=== PATIENT | female | born 1965 | race African-American/Black ===

== ENCOUNTER 2018-09-24 00:23 | Observation (INO) | payer BC ==
[2018-09-24] MEDS ORDERED: Lorazepam 1 MG TAB PO PRN (01:44)
[2018-09-24] MEDS ORDERED: Ondansetron ODT 4 MG TAB PO PRN (01:45)
[2018-09-24] MEDS ORDERED: Senokot S 8.6-50 MG TAB PO PRN (01:45)
[2018-09-24] MEDS ORDERED: Calcium Carbonate 500 MG ChewTAB PO PRN (01:45)
[2018-09-24] MEDS ORDERED: Ondansetron PF 4 MG/2 ML Vial IVP PRN (01:45)
[2018-09-24] MEDS ORDERED: Acetaminophen 325 MG TAB PO PRN (01:45)
[2018-09-24] MEDS ORDERED: hydrALAZINE 20 MG/ML VIAL SLOW IVP PRN (01:47)
[2018-09-24] MEDS ORDERED: Meclizine HCl 25 MG TAB PO PRN (01:50)
[2018-09-24] MEDS ORDERED: cefTRIAXone\\ROCEPHIN 1 GM in Sodium Chloride 0.9% 100 ML IVPB SCH (02:00)
[2018-09-24] MEDS ORDERED: Aspirin 325 mg Enteric Coated Tablet PO SCH (02:00)
--- NOTE | 2018-09-24 02:20 | HP ---
PRIMARY CARE PHYSICIAN: Dr. Rangel in [place]. CHIEF COMPLAINT: Stroke-like symptoms. The patient is a transfer from [facility]. HISTORY OF PRESENT ILLNESS: The patient is a 53-year-old female with hypertension, presented to [facility] with dizziness. Over the last 3 days, the patient has on and off dizziness that progressively got worse. This morning, she had difficulty focusing on an object. The room kept spinning. She also had some nausea along with generalized headache. She denies any double vision, blurring of vision, facial asymmetry, weakness or numbness of any of her extremities. She also had difficulty walking because of the visual deficits. She is currently on 3 antihypertensives. However, she is unable to recall the names of any of her medications. She was seen in the emergency room at [facility] yesterday morning with similar symptoms and was discharged to home. However, the symptoms got worse, for which she presented to the emergency room. At the emergency room, she had a CT scan of the brain that was negative for acute CVA. She was transferred to this facility for hospital admission. The patient denies any hearing loss, however, has occasional high-pitched noises in the left ear. PAST MEDICAL HISTORY: Hypertension. PAST SURGICAL HISTORY: Hysterectomy and tubal ligation. ALLERGIES: NO KNOWN DRUG ALLERGIES. CURRENT HOME MEDICATIONS: Clonidine, carvedilol, and losartan per patient report. She is unable to recall the dosages of above medications. SOCIAL HISTORY: The patient currently lives at home with her family. No current use of smoking, alcohol, or drug use. FAMILY HISTORY: Mother with breast cancer. Hypertension and diabetes runs in her family. REVIEW OF SYSTEMS: All other review of systems was reviewed and were found negative. PHYSICAL EXAMINATION: VITAL SIGNS: Vital signs at [facility] showed temperature 97.9, pulse rate of 96, respiration of 22, blood pressure of 136/92. Please note, the patient received Compazine, Haldol, and aspirin at the other facility. GENERAL: A 53-year-old female lying in a dark room with the eyes closed. HEENT: Head, atraumatic and normocephalic. Sclerae anicteric. Moist mucous membranes. No oral lesion. Pupils were 3-4 mm bilaterally with good response to light. There was nystagmus at the right gaze. Otoscopic examination did not show significant fluid collection. NECK: Supple. No JVD appreciated. No carotid bruit. LUNGS: Clear to auscultation bilaterally. No wheezing, rales, or rhonchi. HEART: S1, S2 present. Regular rate and rhythm. No rubs or gallops appreciated. ABDOMEN: Soft, nontender. Bowel sounds present. EXTREMITIES: No edema or calf tenderness. NEUROLOGY: Cranial nerves 2 through 12 are normal on examination except for nystagmus as discussed above. Power was 5/5 in all extremities. Yavtgx-vg-oefh and thbm-kl-xuow test was normal. Reflexes were equivocal. PSYCHIATRY: Alert, awake, and oriented x3. SKIN: Warm and dry. LYMPH NODES: No palpable lymph nodes in the neck. PERIPHERAL VASCULAR: Radial pulses palpable bilaterally. MUSCULOSKELETAL: No joint swelling or tenderness. LABORATORY FINDINGS: CBC showed WBC 8.3 with hemoglobin 13.3, hematocrit 40.2, platelet 273. Chemistries showed sodium 140, potassium 4.2, chloride 105, bicarb 25, BUN 14, creatinine 0.93, glucose of 84. AST and ALT in normal range. Total bilirubin in normal range. Magnesium 2.5. Lactic acid 0.8. Calcium was 10.6. Urinalysis showed 20-50 wbc's with small leukocyte esterase. CT scan of the brain was negative for acute findings. Troponin was negative. Telemetry monitoring by my review showed sinus rhythm. EKG was not sent from [facility]. This will be done at this facility. IMPRESSION: 1. Dizziness, nausea, vomiting, probably secondary to acute cerebrovascular accident. Peripheral vertigo is also a possibility. 2. Hypertension. 3. Urinary tract infection. 4. Dehydration. PLAN: The patient will be monitored in the stroke unit as observation. MRI with internal auditory canals will be done. She has mild claustrophobia for which Ativan will be added. Home medications needs to be verified. We will resume low-dose carvedilol along with clonidine and losartan. Gentle IV hydration for dehydration. We will also add ceftriaxone for UTI. We will add urine culture. We will consult Physical Therapy. Continue aspirin. We will check fasting lipid profile. Plan of care was discussed with the patient in detail. She stated understanding. Job ID: [id number]
[2018-09-24] MEDS: Sodium Chloride 0.9% 1,000 ML IV SCH ×2 (03:30→15:08)
[2018-09-24 03:55] VITALS: BMI 34.0
[2018-09-24 06:25] LABS: Cardiac Risk 4.1 (Less than 4.5); Magnesium 2.3 mg/dL (1.6-2.6)
[2018-09-24 06:55] LABS: Folate (Folic Acid) 7.8 ng/mL (7.0-31.4)
[2018-09-24 08:09] LABS: Troponin I Less than 0.010 ng/mL (< 0.028)
[2018-09-24] MEDS: Carvedilol 3.125 MG TAB PO SCH ×2 (08:51→17:29)
[2018-09-24] MEDS: Famotidine 20 MG TAB PO SCH ×2 (08:52→21:29)
[2018-09-24] MEDS: Enoxaparin Sodium 40 MG/0.4 ML SYRINGE SC SCH (08:52)
[2018-09-24] MEDS: Losartan 25 MG TAB PO SCH (08:52)
[2018-09-24] MEDS: Aspirin 325 mg Enteric Coated Tablet PO SCH (08:52)
[2018-09-24] MEDS ORDERED: ISOVUE-370 76%-LOCM 1 ML ONE (09:30)
[2018-09-24] MEDS ORDERED: Gadobenate Dimeglumine 529 MG/1 ML (20ML VIAL) ONE (09:34)
--- NOTE | 2018-09-24 11:09 | MRI ---
MRI OF THE BRAIN WITH AND WITHOUT IV CONTRAST: Date: 09/24/18 INDICATION: History of acute CVA with left ear tinnitus. TECHNIQUE: Multiplanar, multisequence MR images were obtained of the brain with and without contrast utilizing I protocol. 18 mL of MultiHance was utilized for the exam. No comparisons available. FINDINGS: When reviewing the DWI and ADC images, no focal region of restricted diffusion to suggest acute CVA i s present. The septum pellucidum and third ventricle are midline. The IACs on both the T2 high resolu tion images and the postcontrast series appear within normal limits. No otomastoid effusion is presen t. No CPA mass is present. There are appropriate flow-voids within the major intracranial vessels. No morphological or signal abnormality is evident. No gross area of abnormal enhancement is noted. IMPRESSION: No acute intracranial abnormality. POS: BH
--- NOTE | 2018-09-24 11:38 | PDOC.PN ---
- Subjective Encounter Start Date: 09/24/18 Encounter Start Time: 11:36 Ms. Atkinson was seen today in follow-up of dizziness. She says she continues to have some dizziness, but admits it is worse when she turns her head or when she gets up to try to do anything. She denies any weakness in her extremities. - Objective Resuscitation Status - Order Detail: 09/24/18 01:45 Resuscitation Status Routine Resuscitation Status: FULL: Full Resuscitation MAR Reviewed: Yes Vital Signs & Weight: Vital Signs (12 hours) Temp Pulse Resp BP Pulse Ox 09/24/18 08:00 98.5 F 67 16 133/85 100 09/24/18 04:00 98.2 F 65 16 137/78 98 09/24/18 02:50 97.6 F 76 12 157/110 H 99 Weight Weight 198 lb 6.4 oz I&O: 09/23/18 09/24/18 09/25/18 06:59 06:59 06:59 Intake Total 250 Balance 250 Phys Exam - Physical Examination HEENT: PERRLA Respiratory: no wheezing, no rales, no rhonchi, clear to auscultation bilateral Cardiovascular: RRR, no significant murmur, no rub Gastrointestinal: soft, non-tender, no distention, positive bowel sounds Musculoskeletal: no edema, pulses present Neurological: non-focal Dx/Plan (1) Vertigo Code(s): R42 - DIZZINESS AND GIDDINESS Status: Acute (2) Hypertension Code(s): I10 - ESSENTIAL (PRIMARY) HYPERTENSION Status: Chronic (3) Dyslipidemia Code(s): E78.5 - HYPERLIPIDEMIA, UNSPECIFIED Status: Chronic - Plan * Dizziness- I suspect BPV. MRI was negative for acute CVA. However her symptoms have been intermittent and she has HTN and elevated LDL. Will check a CTA to determine if she has evidence for Vertebral Basilar Insufficiency * HTN- blood pressure is stable * Elevated LDL- depending on the results of the CTA, she may need a statin.
[2018-09-24 12:07] LABS: Anion Gap 11 mmol/L (10-20); BUN (Urea Nitrogen) 9 mg/dL (9.8-20.1); Calc. Creatinine Clearance 122 mL/min (70-130); Calcium 9.5 mg/dL (7.8-10.44); Carbon Dioxide 25 mmol/L (22-29); Chloride 108 mmol/L (98-107); Estimated GFR-MDRD Greater than 90; Glucose 78 mg/dL (70-105); Potassium 3.9 mmol/L (3.5-5.1); Sodium 140 mmol/L (136-145)
--- NOTE | 2018-09-24 14:15 | CT ---
EXAM: CT angiogram great vessels neck with IV contrast and three-dimensional reconstructions PROVIDED CLINICAL HISTORY: Vertebrobasilar insufficiency COMPARISON: None FINDINGS: There is a common origin of the innominate and left common carotid arteries. There is no evidence for a significant stenosis involving the common carotid, internal carotid, vertebral or subclavian arteries. The visualized lung apices appear clear. The osseous structures demonstrate no concerning lytic or bl astic lesions. There is a somewhat masslike mucosal prominence seen in the region of the aryepiglottic folds, nonspecific. No regional lymph node enlargement is evident. IMPRESSION: 1. No evidence for a hemodynamically stenosis involving the great vessels of the neck. 2. Somewhat masslike soft tissue in the region of the aryepiglottic folds. Correlation with direct vi sualization recommended.
--- NOTE | 2018-09-24 16:29 | PDOC.EVN ---
Event Note - Event Note Event Note: Results of CTA were discussed with the patient. There was no evidence of vertebral basilar disease. 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 I also discussed the incidental finding of a possible mass like lesion in the aryepiglottic fold. I have recommended outpatient ENT evaluation. She tells me she feels too unstaeady on her feet to go home. She is afraid she will fall. Will keep her in the hospital one more day. She may need referral to Outpatient PT for balance and gait.
[2018-09-24] MEDS ORDERED: Atorvastatin Calcium 40 MG TAB PO SCH (21:00)
[2018-09-24] MEDS ORDERED: cloNIDine 0.1 MG TAB PO SCH (21:00)
[2018-09-25] MEDS: Sodium Chloride 0.9% 1,000 ML IV SCH ×2 (00:51→15:07)
[2018-09-25] MEDS: Losartan 25 MG TAB PO SCH (08:06)
[2018-09-25] MEDS: Carvedilol 3.125 MG TAB PO SCH ×2 (08:07→17:49)
[2018-09-25] MEDS: Aspirin 325 mg Enteric Coated Tablet PO SCH (08:07)
[2018-09-25] MEDS: Famotidine 20 MG TAB PO SCH (08:07)
[2018-09-25] MEDS: Enoxaparin Sodium 40 MG/0.4 ML SYRINGE SC SCH (08:07)
[2018-09-25 15:35] VITALS: TEMP 99.2
[2018-09-25 15:43] LABS: #Basophils 0.1 thou/uL (0.0-0.2); #Eosinphils 0.1 thou/uL (0.0-0.7); #Lymphocytes 1.7 thou/uL (1.20-3.40); #Monocytes 0.4 thou/uL (0.11-0.59); #Neutrophils 5.5 thou/uL (1.40-6.50); %Basophils 0.9 % (0.0-1.0); %Lymphocytes 22.1 % (21.0-51.0); %Monocytes 4.5 % (0.0-10.0); %Neutrophils 71.5 % (42.0-75.0); Hemoglobin 11.4 g/dL (12.0-16.0); Mean Corpuscular HGB CONC 32.1 g/dL (32.0-36.0); Mean Corpuscular Hemoglobin 29.4 pg (27.0-31.0); Mean Corpuscular Volume 91.7 fL (78.0-98.0); Mean Platelet Volume 7.5 fL (7.4-10.4); Platelet Count 218 thou/uL (130-400); RBC Distribution Width 11.8 % (11.5-14.5); Red Blood Cell (RBC) Count 3.88 mill/uL (4.20-5.40); White Blood Cell (WBC) Count 7.7 thou/uL (4.8-10.8)
[2018-09-25 16:04] LABS: ALT (SGPT) 12 U/L (8-55); AST (SGOT) 14 U/L (5-34); Albumin 3.8 g/dL (3.5-5.0); Alkaline Phosphatase 64 U/L (40-150); Anion Gap 9 mmol/L (10-20); BUN (Urea Nitrogen) 8 mg/dL (9.8-20.1); Bilirubin, Total 0.3 mg/dL (0.2-1.2); CK (CPK) 104 U/L (29-168); Calc. Creatinine Clearance 116 mL/min (70-130); Calcium 9.3 mg/dL (7.8-10.44); Carbon Dioxide 26 mmol/L (22-29); Chloride 107 mmol/L (98-107); Estimated GFR-MDRD Greater than 90; Globulin 3.5 g/dL (2.4-3.5); Glucose 81 mg/dL (70-105); Magnesium 2.2 mg/dL (1.6-2.6); Potassium 3.3 mmol/L (3.5-5.1); Protein, Total 7.3 g/dL (6.0-8.3); Sodium 139 mmol/L (136-145)
[2018-09-25 16:24] VITALS: BP 141/100
[2018-09-25] MEDS ORDERED: Potassium Chloride 20 MEQ TAB PO SCH (17:15)
== END 2018-09-25 18:30 | disposition home or self-care (01) ==
LOC: ERS 00:23 → 2SE 01:04
PROVIDERS: ADMIT Internal Medicine; ATTEND Internal Medicine
DX: R42 Dizziness and giddiness (principal); R51 Headache; R11.2 Nausea with vomiting, unspecified; I10 Essential (primary) hypertension; N39.0 Urinary tract infection, site not specified; E86.0 Dehydration; H93.12 Tinnitus, left ear; E78.5 Hyperlipidemia, unspecified; Z86.73 Personal history of transient ischemic attack (TIA), and cerebral infarction without residual deficits; Z79.899 Other long term (current) drug therapy
CPT/HCPCS: 36415; 70498; 70553; 80048; 80053; 80061; 82550; 82607; 82746; 83735; 84484; 85025; 87086; 93005; 93306; 96361; 96365; 96372; 96375; A9577; G0378; J0696; J1650; J2405; J3490; J8499; Q0162; Q9966